=== PATIENT | male | born 1985 | race Caucasian/White ===

== ENCOUNTER 2025-01-26 23:19 | Emergency (ER) | payer SELFPAY ==
[2025-01-26 23:19] VITALS: BP 116/63; PULSE 110; RESP 16; TEMP 36.4; O2SAT 100
[2025-01-26 23:31] VITALS: BP 143/82; PULSE 103; RESP 16; TEMP 36.4; O2SAT 99; BMI 27.0
[2025-01-26] MEDS: 0.9% Normal Saline (1000mL) 1,000 ML 999 ML IV (23:47)
[2025-01-26 23:56] LABS: Hematocrit 36.6 % (40-54); Hemoglobin 11.5 g/dL (13.0-16.5); Immature Granulocytes Count 0.100 X10^3/uL (0.0-0.0); Mean Corp Hgb Conc 31.4 g/dL (32-36); Mean Corpuscular Volume 91.5 fL (80-94); Mean Platelet Vol. 8.6 fl (6.2-12.0); NRBC Flagged by Analyzer 0 % (0-5); Platelet Count 306 K/mm3 (150-450); RBC Distribution Width CV 12.7 % (11.6-14.6); RBC Distribution Width SD 42.8 fl (35.1-43.9); Red Blood Count 4.00 M/mm3 (4.6-6.2); White Blood Count 11.8 K/mm3 (4.4-11.0)
[2025-01-27 00:13] VITALS: BP 140/82; PULSE 88; RESP 18; TEMP 36.6; O2SAT 100
[2025-01-27 00:37] LABS: AST(SGOT) 80 U/L (<=37); Alanine Aminotransfer ALT/SGPT 181 U/L (<=46); Albumin, Serum 3.3 g/dL (3.5-5.0); Alkaline Phosphatase 107 U/L (40-129); Anion Gap 13 (5-15); BUN 18 mg/dL (4-19); BUN/Creat Ratio 19.6 RATIO (10-20); Bilirubin, Direct 0.28 mg/dL (0.00-0.30); Calcium,Total 8.8 mg/dL (7.6-11.0); Carbon Dioxide 26.3 mmol/L (21.0-32.0); Chloride 97 mmol/L (98-108); Estimated Creatinine Clearance 113.64 ml/min (50-250); Globulin 3.7 g/dL (2.2-4.2); Glucose 111 mg/dL (70-99); Lipase 23 U/L (13-75); Magnesium 2.4 mg/dL (1.5-2.2); Potassium 3.8 mmol/L (3.3-5.1); Procalcitonin 0.19 ng/mL (<=0.10)
--- NOTE | 2025-01-27 00:49 | CT_ITS ---
PROCEDURE: ABDOMEN/PELVIS W IV CONT ONLY 01/27/2025 REASON FOR EXAM: ABD PAIN TECHNIQUE: Procedure Code: [id number] Modality: CT Procedure: ABDOMEN/PELVIS W IV CONT ONLY Coronal and Sagittal reconstruction series were provided. CONTRAST: isovue 370 VOLUME: 100 mL One or more dose reduction techniques were used (e.g., Automated exposure control, adjustment of the mA and/or kV according to patient size, use of iterative reconstruction technique. RADIATION DOSE SUMMARY: CTDI Vol 13.71 mGy DLP :713.64 mGycm COMPARISON: none FINDINGS: Average sized liver showing homogenous parenchymal attenuation. No dilated intra or extra-hepatic biliary tracts. Gall bladder showing no radiodense calculi. Normal appearance of the pancreas with clear surrounding fat planes. The adrenal glands, aorta and IVC are unremarkable. Non homogenous splenic attenuation showing patchy hypodensities, possibly perfusional. Advise sonography correlation. Minimal left hydroureter with mild mid and lower ureteric wall thickening and enhancement, possibly uretertis. Advise clinical and laboratory correlation. Both kidneys are of average size and showing smooth outline with preserved parenchymal thickness. No renal calculi. No hydronephrosis. Distension of the urinary bladder showing no obvious masses. No obvious masses related to the pelvic viscera. The appendix appears unremarkable. No right iliac inflammatory changes. Colonic fecal loading. Colonic diverticulosis. No diverticulitis. The small bowel loops are unremarkable. The stomach is unremarkable. No ascites or free air. No obvious pathologically enlarged lymph nodes. Scanned osseous structures show no osseous destruction. Scanned lung bases show basal atelectatic bands. CT/Abdomen/Pelvis W IV Cont ONLY IMPRESSION: Non homogenous splenic attenuation showing patchy hypodensities, possibly perfu sional. Advise sonography correlation. Minimal left hydroureter with mild mid and lower ureteric wall thickening and e nhancement, possibly uretertis. Advise clinical and laboratory correlation. Reading Location: [place] [id number]
[2025-01-27 01:00] VITALS: BP 140/73; PULSE 95; RESP 18; TEMP 36.8; O2SAT 100
--- NOTE | 2025-01-27 02:02 | EDS_ITS ---
HPI History of Present Illness Chief Complaint: Abd Pain Informant: patient and spouse/S.O. Narrative Narrative: Patient is a 39-year-old male who states he has no significant past medical history other than recently being treated for potential Lyme disease. He states that he saw his family doctor and had a Lyme test obtained and it was ultimately negative. However because his family doctor had concern that it was a false negative he did start him on doxycycline. The patient has a known medication intolerance to this that he reports causes abdominal pain as well as cramping and bloating. He states that he took the medication as directed but after being on it for 3 to 4 days had significant side effects and he chose to stop the medication on Saturday. He reports that he has not had the bed now for 2 days but despite not taking it he has persistent abdominal discomfort. He reports nausea associated with this but denies any vomiting or diarrhea. He denies any dysuria fevers or chills or known sick contact. However because of the persistent sympt oms he presents for evaluation [facility] Medical History no medical history Home Medications ?Medication ?Instructions ?Recorded ?Last Taken ?Type ondansetron 4 mg disintegrating 4 mg PO TID PRN nausea and 01/27/25 Unknown Rx tablet vomiting #21 tabs oxycodone-acetaminophen 5 mg-325 1 tab PO Q6H PRN pain 3 days #12 01/27/25 Unknown Rx mg tablet (Percocet) tabs Allergy/AdvReac Type Severity Reaction Status Date / Time amoxicillin Allergy Abd Verified 01/26/25 23:22 cramps/diarrhea clavulanic acid (From Allergy Abd Verified 01/26/25 23:22 Augmentin) cramps/diarrhea doxycycline AdvReac Abd Verified 01/26/25 23:22 cramps/diarrhea Family History no significant family his Surgical History no surgical history Social History Smoking Status: Never smoker ROS ROS ED Constitutional Constitutional ED: Denies chills or fever(s) ENT ENT ED: Denies rhinorrhea or sore throat Cardiovascular Cardiovascular: Denies chest pain Respiratory/Chest Respiratory/Chest: Denies cough or dyspnea Gastrointestinal Gastrointestinal: Reports abdominal pain and nausea; Denies diarrhea or vomiting Genitourinary Genitourinary ED: Denies dysuria Musculoskeletal Musculoskeletal: Denies back pain or myalgias Integumentary Denies rash Neurologic Neurologic: Denies headache(s) Hematologic/Lymphatic Hematologic/Lymphatic: Denies easy bleeding or easy bruising EXAM Physical Exam Const Vital Signs: 01/26/25 23:19 01/26/25 23:31 01/27/25 00:13 Temperature 97.6 F L 97.6 F L 97.8 F Temperature Source Oral Oral Oral Pulse Rate 110 H 103 H 88 Respiratory Rate 16 16 18 Blood Pressure 116/63 143/82 H 140/82 H Blood Pressure Mean 80 102 101 Pulse Ox 100 99 100 Oxygen Delivery Method Room Air Room Air Room Air 01/27/25 01:00 01/27/25 02:03 01/27/25 02:03 Temperature 98.3 F 98.3 F Temperature Source Oral Pulse Rate 95 85 85 Respiratory Rate 18 18 18 Blood Pressure 140/73 H 135/83 H 135/83 H Blood Pressure Mean 95 100 100 Pulse Ox 100 100 100 Oxygen Delivery Method Room Air Room Air Positive well nourished and well developed General Appearance ED: well developed; Negative for pallor HEENT HEENT Narrative: Normocephalic atraumatic No tongue or lip swelling no oral lesions no airway edema or compromise No secondary findings in the posterior pharynx to suggest infection Mucous membranes are mildly dry and tacky Eyes PERRL and EOMs intact bilaterally General Eye ED: Negative for scleral icterus Neck supple Neck Narrative: No nuchal rigidity or meningeal signs Resp normal respiratory effort and clear to auscultation bilaterally Cardio regular rate and regular rhythm Rate: other Other Details: Regular rate and rhythm without murmurs rubs or gallops Radial and carotid pulses are equal and symmetric GI non-distended and no masses GI Narrative: Abdomen is soft and nondistended with hyperactive bowel sounds Patient has mild diffuse pain with palpation without voluntary guarding or rigidity No pulsatile mass or fluid wave No peritoneal signs Auscultation: hyperactive bowel sounds Palpation: soft Extremity normal to inspection Neuro oriented x3, CN's II-XII intact bilaterally and no sensory deficits noted Sensorium / Orientation: alert Motor Exam: strength 5/5 throughout Psych mental status grossly normal Skin no rashes or lesions noted and no wounds General Skin Exam: Negative for jaundice or pallor MDM MDM MDM Narrative Medical decision making narrative: Patient arrived to the ER with stable vitals. He reported known medication intolerance to doxycycline and has been on this for 3 to 4 days. He states however he has been off the medication for approximate 2 days now without symptom improvement. In order to assess for acute kidney injury versus electrolyte abnormality versus pancreatitis I did elect to perform basic laboratory studies. The patient reports that he had an x-ray done by the family doctor just the other day which was reportedly normal. He did have a copy of his blood work that was obtained at the same time and it was reviewed. It showed leukocytosis with a white count of 12.4 a neutrophil count elevated at 9.6 and other markers of inflammation with an ESR of 79. Blood work today is similar to the one obtained by his family doctor with mild elevation to the white blood cell count and absolute neutrophil count which correlates most likely with inflammation. Lipase is normal going against pancreatitis. Liver enzymes in the AST and ALT were slightly elevated. In order to rule out a potential gallbladder pathology such as acute cholecystitis acute appendicitis or colitis/diverticulitis I did elect to add a CT scan with IV contrast of the abdomen and pelvis. This revealed potential left ureteritis however the patient's pain is diffuse and he does not have associated back pain or urinary issues and therefore this does not clinically correlate. The radiologist also documented potential phase augmentation of the spleen. Once again his pain is not localized there is no report or signs of trauma and this does not clinically correlate so there is no need for an emergent sonographic evaluation. After receiving medication in the ER the patient reports his pain is now a 2 or 3. On reevaluation his abdomen remains soft and nonsurgical. Therefore as his labs are very similar to the previous day his CT scan reveals no sign of acute infection and his pain is improved I do not feel the need for further intervention and he is otherwise safe for discharge. History & Record Review Discussion w/independent historian: Patient and Significant other Additional record(s) reviewed:: Prior labs Lab Data Attestation: I reviewed the patient's lab results. Labs: Laboratory Results - last 24 hr 01/26/25 23:36 WBC 11.8 H RBC 4.00 L Hgb 11.5 L Hct 36.6 L MCV 91.5 MCH 28.8 MCHC 31.4 L RDW Std Deviation 42.8 RDW Coeff of Iveth 12.7 Plt Count 306 MPV 8.6 Immature Gran % (Auto) 0.800 Neut % (Auto) 79.8 H Lymph % (Auto) 6.6 L [place] % (Auto) 6.0 Eos % (Auto) 6.4 H Baso % (Auto) 0.4 Absolute Neuts (auto) 9.4 H Absolute Lymphs (auto) 0.78 L Nucleated RBC % 0 Sodium 136 Potassium 3.8 Chloride 97 L Carbon Dioxide 26.3 Anion Gap 13 BUN 18 Creatinine 0.91 Estim Creat Clear Calc 113.64 Est GFR (MDRD) Non-Af 111 BUN/Creatinine Ratio 19.6 Glucose 111 H Calcium 8.8 Magnesium 2.4 H Total Bilirubin 0.62 Direct Bilirubin 0.28 AST 80 H ALT 181 H Alkaline Phosphatase 107 Total Protein 7.0 Albumin 3.3 L Globulin 3.7 Lipase 23 Procalcitonin 0.19 H Radiography Diagnostic Testing: Clinical Impression(s) from Imaging Studies Abdomen/Pelvis CT 01/27/25 00:49 IMPRESSION: Non homogenous splenic attenuation showing patchy hypodensities, possibly perfusional. Advise sonography correlation. Minimal left hydroureter with mild mid and lower ureteric wall thickening and enhancement, possibly uretertis. Advise clinical and laboratory correlation. Reading Location: [place] [id number] Discharge Plan Triage Chief Complaint: Abd Pain ED Provider: Paul Lieberman Dx/Rx/DC Orders Clinical Impression: Nonspecific abdominal pain Instructions: Abdominal Pain Prescriptions: New ondansetron 4 mg tablet,disintegrating 4 mg PO TID PRN (Reason: nausea and vomiting) Qty: 21 0RF oxycodone-acetaminophen [Percocet] 5-325 mg tablet 1 tab PO Q6H PRN (Reason: pain) 3 Days Qty: 12 0RF Stand Alone Forms: ED Work / School Excuse Primary Care Provider: Haja Santiago Referrals: Haja Santiago MD [Primary Care Provider, Medical] Activity Restrictions/Additional Instructions: Your CT scan today revealed no sign of intestinal infection such as colitis/diverticulitis or appendicitis. Your labs were very similar to the ones obtained by your family doctor. Your symptoms should improve over the next 2 to 3 days as the doxycycline metabolizes out of your system. If your symptoms are persisting/worsening or you have any further concerns then return to the ER for repeat evaluation Print Language: Kos[place] Disposition Disposition: Home, Self Care Discharge Date/Time: 01/27/25 02:11
[2025-01-27 02:03] VITALS: BP 135/83; PULSE 85; RESP 18; TEMP 36.8; O2SAT 100
== END 2025-01-27 02:11 | disposition home or self-care (01) ==
PROVIDERS: Emergency Provider Emergency Medicine; PCP Family Medicine; Visit Provider Emergency Medicine
DX: R10.9 Unspecified abdominal pain (principal)
CPT/HCPCS: 74177; 80048; 80076; 83690; 83735; 84145; 85025; 96361; 96374; 96375; 99284; Q9967; A4216; J2405

== ENCOUNTER 2025-01-29 17:13 | Inpatient (IN) | payer SELFPAY ==
[2025-01-29] VITALS (8 sets, daily range): BP systolic 116–140; BP diastolic 68–89; PULSE 78–123; RESP 12–22; TEMP 37.2–37.9; O2SAT 96–100; BMI 27.9
--- NOTE | 2025-01-29 17:40 | EDS_ITS ---
HPI History of Present Illness Chief Complaint: Abd Pain Informant: patient, spouse/S.O. and PCP Narrative Narrative: Patient is a 39-year-old male with no significant PMHx presenting with bilateral leg pain, abdominal pain, and chest pain. - Symptoms began approximately one month ago with bilateral calf pain, which progressed to involve the posterior and anterior thighs and buttocks, resulting in difficulty ambulating. - Evaluated by PCP initially, underwent multiple tests including a Lyme disease test, which was negative; started on doxycycline, which caused gastrointestinal discomfort. According to the patient and his , near to the beginning of the symptoms he had been in the fish but experienced no known tick bite and never developed any rash or erythema migrans. - Reports improvement in leg pain, but now experiencing left-sided abdominal and chest pain, which began 1 week ago and has progressively worsened. - Associated symptoms include intermittent fevers, night sweats, bilateral testicular pain, pubic bone pain, and lower back pain. Reports numbness and tingling in feet, with associated weakness in both legs. Still able to walk but with difficulty. At the beginning of this about a month ago he had pain in his mandible with eating, no sore throat, some sinus congestion, but all that is gone now. - Reports some myalgias in biceps and forearms, but no upper ext weakness/numbness or neck pain. - Reports a weight loss of approximately 15 lbs. - Evaluated here in the ED on Saturday, underwent a CT scan of the abd, and was prescribed oxycodone for pain management. Took last dose of oxycodone at 0600 today; reports worsening pain this afternoon, prompting a visit to the PCP, who referred him to the ED upon reevaluating in the office and recording a fever of 101.3 and persistent symptoms of unk cause. PFSH PFS Medical History no medical history no medical history Home Medications ?Medication ?Instructions ?Recorded ?Last Taken ?Type ondansetron 4 mg disintegrating 4 mg PO TID PRN nausea and 01/27/25 Unknown Rx tablet vomiting #21 tabs oxycodone-acetaminophen 5 mg-325 1 tab PO Q6H PRN pain 3 days #12 01/27/25 Unknown Rx mg tablet (Percocet) tabs Allergy/AdvReac Type Severity Reaction Status Date / Time amoxicillin Allergy Abd Verified 01/29/25 17:15 cramps/diarrhea clavulanic acid (From Allergy Abd Verified 01/29/25 17:15 Augmentin) cramps/diarrhea doxycycline AdvReac Abd Verified 01/29/25 17:15 cramps/diarrhea Social History Smoking Status: Never smoker ROS ROS ED Constitutional Constitutional ED: Reports chills, fatigue and fever(s) Eyes Eyes: Denies change in vision or diplopia ENT ENT ED: Denies rhinorrhea or sore throat Cardiovascular Cardiovascular: Denies chest pain or palpitations Respiratory/Chest Respiratory/Chest: Denies cough or dyspnea Gastrointestinal Gastrointestinal: Reports abdominal pain; Denies diarrhea, nausea or vomiting Genitourinary Genitourinary ED: Reports scrotal pain; Denies dysuria or hematuria Musculoskeletal Musculoskeletal: Reports back pain and myalgias; Denies neck pain Integumentary Denies abscess or rash Neurologic Neurologic: Reports paresthesias RLE and LLE and weakness; Denies headache(s) Psychiatric Psychiatric: Denies suicidal thoughts EXAM Physical Exam Const Vital Signs: 01/29/25 17:14 01/29/25 17:25 01/29/25 17:57 Temperature 99.6 F H 99.7 F H Temperature Source Oral Oral Pulse Rate 123 H 119 H Respiratory Rate 22 H 13 Blood Pressure 140/84 H 137/89 H Blood Pressure Mean 102 105 Pulse Ox 99 99 Oxygen Delivery Method Room Air Room Air Room Air 01/29/25 18:14 01/29/25 20:21 01/29/25 21:00 Temperature 100.2 F H 100.2 F H Temperature Source Oral Oral Pulse Rate 78 108 H 109 H Respiratory Rate 16 22 H 14 Blood Pressure 132/78 H 120/71 116/83 H Blood Pressure Mean 96 87 94 Pulse Ox 98 96 97 Oxygen Delivery Method Room Air Room Air Room Air 01/29/25 21:49 01/29/25 22:10 01/29/25 23:10 Temperature 99.1 F 99.1 F 99 F Temperature Source Oral Oral Oral Pulse Rate 109 H 100 101 H Respiratory Rate 21 H 12 18 Blood Pressure 136/72 H 124/77 H 118/68 Blood Pressure Mean 93 92 84 Pulse Ox 100 100 100 Oxygen Delivery Method Room Air Room Air Room Air 01/30/25 00:05 01/30/25 01:00 Temperature 99.1 F Temperature Source Oral Pulse Rate 96 91 Respiratory Rate 12 Blood Pressure 124/88 H 119/76 Blood Pressure Mean 100 90 Pulse Ox 98 99 Oxygen Delivery Method Room Air Positive well nourished and well developed General Appearance ED: well developed and NAD HEENT Reports moist mucous membranes normocephalic and atraumatic Eyes PERRL and EOMs intact bilaterally Neck full ROM and supple Resp normal respiratory effort and clear to auscultation bilaterally Cardio regular rate, regular rhythm and no murmurs Rate: tachycardic GI non-distended GI Narrative: Mild diffuse tenderness without guarding or rebound Auscultation: normoactive bowel sounds Palpation: soft Narrative: exam is normal on inspection. Penis is normal on inspection no palpable tender lymphadenopathy in the groin. Both testicles are normal-appearing scrotum does not appear to be edematous or erythematous, but both testicles are tender especially the right. More so posteriorly in the epididymis area. No blue dot sign. Perineum is normal on palpation and inspection, there is no subcutaneous emphysema, and sensation is normal in the perineum and perianal areas. Back/Spine Back/Spine Narrative: Patient indicates pain is lower thoracic upper lumbar area there is no tenderness or abnormal inspection. No step-off. General Back: CVA tenderness right (Mild subjective normal inspection) and other FROM Extremity normal to inspection General Extremety ED: Negative for edema, pulses abnormal or tenderness General Extremity: Negative for edema or pulses abnormal Neuro oriented x3, CN's II-XII intact bilaterally and no sensory deficits noted Neuro Narrative: Weakness all muscle groups symmetrically 4+/5 throughout both lower extremities. Decreased sensation on dorsal and plantar aspects of both feet but normal sensation proximal to the ankles. Normal motor and sensation both upper extremities. Normal lower extremity reflexes with no clonus and toes downgoing bilaterally. Normal speech no aphasia or dysarthria. Sensorium / Orientation: awake and alert Psych mental status grossly normal Skin no rashes or lesions noted and no wounds MDM MDM MDM Narrative Medical decision making narrative: I reviewed the patient's prior ED visit and labs. He had some mildly elevated liver enzymes he had a CT that showed that he had some mild left hydroureter and inflammatory changes as well as some nonhomogenous splenic attenuation with patchy hypodensities possibly perfusional. It is unclear how all of this is related to his fevers, but I do not think that these findings explain all of his symptoms and I am more concerned about the fact that he is having persistent fevers objective weakness in his legs and severe pain in his back. Epididymitis clinically is suspected but that does not explain all of this either so I think he needs an emergent MRI of his lumbar and thoracic spine with contrast given the location of his pain, to evaluate for epidural abscess/infection. Blood cultures have been obtained, along with repeated CMP and CBC, and a urinalysis was performed, which was not done previously. I reviewed the prior CT, which showed some inflammation around the left ureter but was fairly nonspecific and showed no other acute findings. I do not think the CT needs to be repeated since it was performed only a few days ago. I also obtained a chest X-ray (two views), which I interpreted as negative, and I ordered a testicular ultrasound, as well as emergent thoracic and lumbar MRIs with contrast. The MRIs are negative for an epidural abscess or any other acute abnormality that would explain these symptoms. The testicular ultrasound is indeterminate; it shows findings that may be consistent with left epididymitis, although the patient is more tender on the right. The ultrasound findings show multiple ill- defined hypoechoic regions within both testicles with preserved vascularity, which may be inflammatory or infectious. Bilateral varicocele is noted, but it is unclear how this is related. Mumps is a consideration, although he does not currently have parotid involvement. However, he reports he had jaw pain with eating early in the course of this illness, though without swelling. Because the sensitivity for Lyme is relatively low early on, I think it is worth repeating that test. I also sent mumps titers, which are unlikely to be performed tonight, especially since this is a Saturday night at a [facility] hospital. The liver enzymes are now slightly elevated (they were normal before): AST is 102, ALT 176, and alkaline phosphatase 130. Total bilirubin is normal. Lactic acid is normal at 1.1, and CPK is normal at 79. Urine shows blood but no sign of infection, and it is unclear how all of this ties together. On reexamination, after administering Tylenol for his fever, he is doing well. His tachycardia has resolved, his blood pressure is normal at 124/77, and he is on room air at 100%. He appears well, is not encephalopathic, and does not appea r to have meningitis. Clinically he is stable, and it is unclear how his multisystem symptoms and findings fit together I spoke with my hospitalist here, who states we do not have urology for the next week nor tonight and given his CT findings and ultrasound findings he would recommend urologic consult for that reason he may benefit from transfer to a tertiary care center that would also have other subspecialties such as rheumatology that we also do not have as an inpatient here. I did send CRP and ESR which are both elevated, Monospot is negative. Vasculitis is in the differential, he has spleen abnormalities and anemia, it is unclear if this could be an immune system issue or hematologic problem. He is not septic, so I am holding off on any antibiotics. I discussed with clinic transfer line, they suggested speaking with internal medicine at [facility] since that is the only hospital and they are network that has rheumatology in case he may need that specialist/resource. I spoke with Dr. Niru dailey/ medicine, who accepts the pt to [facility]. History & Record Review Additional record(s) reviewed:: Prior outpatient record Lab Data Attestation: I reviewed the patient's lab results. Labs: Laboratory Results - last 24 hr 01/29/25 01/29/25 01/30/25 17:30 21:47 00:08 WBC 11.6 H RBC 3.76 L Hgb 11.2 L Hct 34.2 L MCV 91.0 MCH 29.8 MCHC 32.7 RDW Std Deviation 43.6 RDW Coeff of Iveth 13.1 Plt Count 325 MPV 8.6 Immature Gran % (Auto) 0.600 Neut % (Auto) 84.7 H Lymph % (Auto) 5.6 L Villalba % (Auto) 5.4 Eos % (Auto) 3.4 Baso % (Auto) 0.3 Absolute Neuts (auto) 9.8 H Absolute Lymphs (auto) 0.65 L Nucleated RBC % 0 ESR 60 H PT 14.6 INR 1.1 APTT 37.0 H Sodium 134 Potassium 3.9 Chloride 95 L Carbon Dioxide 28.1 Anion Gap 11 BUN 12 Creatinine 0.85 Estim Creat Clear Calc 131.94 Est GFR (MDRD) Non-Af 114 BUN/Creatinine Ratio 14.3 Glucose 104 H Lactic Acid 1.1 Calcium 8.8 Total Bilirubin 0.58 AST 102 H ALT 176 H Alkaline Phosphatase 130 H Total Creatine Kinase 79 C-React Prot Ext Range 234.00 H Total Protein 7.1 Albumin 3.2 L Globulin 3.9 Albumin/Globulin Ratio 0.8 L Urine Color Yellow Urine Clarity Clear Urine pH 7.0 Ur Specific [place] 1.010 Urine Protein 100 H Urine Glucose (UA) Normal Urine Ketones 50 H Urine Occult Blood 250 H Urine Nitrite Negative Urine Bilirubin Negative Urine Urobilinogen Normal Ur Leukocyte Esterase 25 H Urine RBC 50-100 SEEN Urine WBC 0-5 SEEN Ur Squamous Epith Cells 0 SEEN Urine Bacteria 1+ Urine Mucus 0 SEEN Monoscreen Negative Radiography Diagnostic Testing: Clinical Impression(s) from Imaging Studies Lumbar Spine MRI 01/29/25 17:51 IMPRESSION: Unremarkable exam. No significant spinal canal or neural foraminal narrowing. No signal abnormality or pathologic enhancement involving the spinal cord or cauda equina. Reading Location: [facility] Testicular Ultrasound 01/29/25 17:51 IMPRESSION: Multiple ill defined hypoechoic regions within both testicles with preserved intratesticular vascularity. Findings are indeterminate but may be inflammatory or infectious in the setting of fever and bilateral testicular pain. Heterogeneous left epididymis which may reflect epididymitis. Small right epididymal head cyst. Bilateral varicoceles. Reading Location: [facility] Thoracic Spine MRI 01/29/25 17:51 IMPRESSION: Unremarkable exam. No significant spinal canal or neural foraminal narrowing. No signal abnormality or pathologic enhancement involving the spinal cord or cauda equina. Reading Location: [facility] Chest X-Ray 01/29/25 18:05 IMPRESSION: No acute pulmonary disease. Reading Location: [facility] Rhythm Strip Rhythm Strip: Sinus Tach Rate: 120 Ectopy: None Management Discussion w/another healthcare provider: Hospitalist and Stock Letterer Discharge Plan Triage Chief Complaint: Abd Pain Other Complaint: Male Pain/Injury ED Provider: Alfred Garcia Dx/Rx/DC Orders Clinical Impression: Fever, Weakness of both lower extremities, Paresthesia of both legs, Elevated liver enzymes, Diffuse abdominal pain, Pain in both testicles, Microscopic hematuria, Ureteritis, Low back pain, Hydroureter on left, Anemia, Proteinuria Prescriptions: No Action ondansetron 4 mg tablet,disintegrating 4 mg PO TID PRN (Reason: nausea and vomiting) Qty: 21 0RF oxycodone-acetaminophen [Percocet] 5-325 mg tablet 1 tab PO Q6H PRN (Reason: pain) 3 Days Qty: 12 0RF Primary Care Provider: Michelle Centeno Referrals: Haja Santiago MD [Non-Staff, Medical] Print Language: Wolof Disposition Disposition: Acute Care Hospital Discharge Location: [facility]
--- OUTSIDE RECORDS SUMMARY | 2025-01-29 17:45 | XMS RPT_ITS | CCD ---
Author Organization [facility] Care Team Providers Care Clinic Cma Name Role Phone [facility] Admitting Unava ilable [facility] Attending Unava ilable [facility] Primary Care Unava ilable [facility] Admitting Unava ilable [facility] Attending Unava ilable [facility], [facility] Primary Care Unava ilable MIKE JONESRY T Consulting Unavailable PROVIDER, UNKNOWN Consulting Unavailable PROVIDER, UNKNOWN Consulting Unavailable PROVIDER, UNKNOWN Consulting Unavailable WAQAR SANTANA Admitting Unavailable WAQAR SANTANA Attending Unavailable WAQAR SANTANA Primary Care Unavailable TRINITY JONES Consulting Unavailable PROVIDER, UNKNOWN Consulting Unavailable PROVIDER, UNKNOWN Consulting Unavailable PROVIDER, UNKNOWN Consulting Unavailable [facility] Admitting Unava ilable [facility] Attending Unava ilable [facility], [facility] MED Primary Care Unava ilable JONESSHAHNAZTRINITY T Consulting Unavailable PROVIDER, UNKNOWN Consulting Unavailable PROVIDER, UNKNOWN Consulting Unavailable PROVIDER, UNKNOWN Consulting Unavailable Results Test Name Value Interpretation Reference Range Facil ity CULTURE, AEROBIC BACTERIAon 07-01-2021 CULTURE, AEROBIC BACTERIA SEE NOTE Normal [facility] Comment on above: Result Comment: CULTURE, AEROBIC BACTERIA Micro Number: [id number] Test Status: Final Specimen Source: Right side neck Specimen Quality: Adequate Result: No Growth Performed By: #### 4 [id number] #### [facility] [address], [address] [place] [address] [place] Teacher: Ron Mendoza MD TISSUE PATHOLOGYon 2 A DIAGNOSIS Normal [facility] Comment on above: Result Comment: Comp lete cross sections of vas deferens with no significant diagnostic abnormality. Performed By: #### 3 [id number] #### [facility], [address] [place] [address] [place] Teacher: Nubia Randhawa GROSS DESCRIPTION Normal [facility] Comment on above: Result Comment: Rece ived in formalin is a specimen labeled with patient identifiers that consists of two cylindrical segments of rice-pink rubbery soft tissue, measuring 1.4 cm and 2.0 cm in length and 0.2 cm in diameter each. Submitted entirely and individually in two cassettes. Both specimen are sectioned during paraffin embedding. CINDY Performed By: #### 3 [id number] #### [facility] [address], [address] [place] [address] [place] Teacher: Nubia Randhawa SOURCE Normal [facility] Comment on above: Result Comment: Righ t and left vas deferens, bilateral vasectomy: Performed By: #### 3 542 #### [address], [facility] [address] [place] [address] [place] Teacher: Nubia Solis CLINICAL INFORMATION Normal [facility] Comment on above: Result Comment: Vase ctomy (Z30.2) Performed By: #### 3 542 #### [address], [facility] [address] [place] [address] [place] Teacher: Nubia Solis Pathologist Cyto stain Nom (Cvx/Vag) [ID] Normal [facility] Comment on above: Result Comment: Micki George M.D. Board certified in Anatomic Pathology and Clinical Pathology (electronic signature) [phone] Performed By: #### 3 542 #### [address], [address] [place] [address] [place] Teacher: Nubia Solis Encounters Encounter Date Encounter Type Care Provider Facility Start: 04-26-2020 End: 04-26-2020 Patient encounter procedure [facility] Start: 02-24-2020 End: 02-24-2020 Patient encounter procedure WAQAR SANTANA [facility] Start: 11-06-2019 End: 11-06-2019 Patient encounter procedure [facility] Start: 08-10-2019 End: 08-10-2019 Patient encounter procedure [facility] Summary Purpose Family History No Family History Records FoundNo Family History Records Found Advance Directives No Advanced Directives Records FoundNo Advanced Directives Records Found Additional Source Comments (unrecognized sect ion and content) No Status Records FoundNo Status Records Found INFORMATION SOURCE (unrecogn ized section and content) DATE CREATED AUTHOR 05/16/2020 [facility] DATE CREATED AUTHOR AUTHOR'S ORGANIZ ATION 07/02/2021 [facility] FOR RECORDS PERTAINING TO PATIENTS WHO ARE OR HAVE BEEN ENROLLED IN A CHEMICAL DEPENDENCY/SUBSTANCEABUSE PROGRAM, SOME INFORMATION MAY BE OMITTED. This clinical summary was aggregated from multiple sources. Caution should be exercised in using it in the provision of clinical care. This summary normalizes information from multiple sources, and as a consequence, information in this document may materially change the coding, format and clinical context of patient data. In addition, data may be omitted in some cases. CLINICAL DECISIONS SHOULD BE BASED ON THE PRIMARY CLINICAL RECORDS. [employer] [facility]. provides no warranty or guarantee of the accuracy or completeness of information in this document.
--- NOTE | 2025-01-29 17:46 | EKG12_ITS ---
Test Reason : Blood Pressure : */* mmHG Vent. Rate : 115 BPM Atrial Rate : 115 BPM P-R Int : 120 ms QRS Dur : 100 ms QT Int : 312 ms P-R-T Axes : 27 25 6 degrees QTcB Int : 431 ms Sinus tachycardia Moderate voltage criteria for LVH, may be normal variant ( R in aVL , Sokolow- Alcaraz ) Borderline ECG Reconfirmed by Wesley James ([id number]), film or videotape editor VICTORINO COFFMAN ([id number]) on 02/01/2025 10:23:09 AM Also confirmed by Wesley James ([id number]), film or videotape editor VICTORINO COFFMAN ([id number]) on 02/02/2025 8:31:35 AM Referred By: BB Confirmed By: Wesley James
--- NOTE | 2025-01-29 17:51 | US_ITS ---
PROCEDURE: TESTICULAR WITH ARTERIAL FLOW 01/29/2025 REASON FOR EXAM: FEVER, BILAT TESTIC PAIN TECHNIQUE: Procedure Code: USTES Modality: US Procedure: TESTICULAR WITH ARTERIAL FLOW FINDINGS: Right testicle measures 4.9 x 3.5 x 0.2 cm. Multiple ill-defined hypoechoic regions with the largest measuring 1.5 x 1.5 x 1.0 cm. Vascularity within normal limits. Right epididymis measures 0.9 x 1.3 x 1.0 cm. Homogeneous epididymis. 0.4 x 0.5 x 0.3 cm epididymal head cyst. Left testicle measures 4.7 x 2.7 x 2.0 cm. Multiple ill-defined hypoechoic areas with the largest measuring 0.9 x 1.6 x 0.9 cm. Vascularity within normal limits. Left epididymis measures 1.2 x 2.1 x 1.2 cm. Heterogeneous epididymis. Dilation of the bilateral pampiniform plexus veins compatible with varicoceles. US/Testicular with Arterial Flow IMPRESSION: Multiple ill defined hypoechoic regions within both testicles with preserved in tratesticular vascularity. Findings are indeterminate but may be inflammatory or infectious in the setting of fever and bilateral testicular pain. Heterogeneous left epididymis which may reflect epididymitis. Small right epididymal head cyst. Bilateral varicoceles. Reading Location: [facility]
--- NOTE | 2025-01-29 17:51 | MRI_ITS ---
PROCEDURE: MRI SPINE THORACIC; SPINE LUMBAR W/WO CONTRAST 01/29/2025 REASON FOR EXAM: FEVER, BACK PAIN, BLE WEAKNESS/NUMBNESS TECHNIQUE: Multiplanar and multisequential MRI of the thoracic and lumbar spines was performed without and with intravenous gadolinium-based contrast. CONTRAST: Clariscan VOLUME: 17mL COMPARISON: None. FINDINGS: Conventional spinal numbering. Thoracolumbar vertebrae are preserved in height, with anatomic alignment and normal marrow signal. No substantial spondylotic changes are appreciated. No significant disc bulge, spinal canal or neural foraminal narrowing. No mass lesion or pathologic enhancement. The visualized spinal cord appears normal in signal and morphology. The conus terminates normally at L1. Normal appearance of the cauda equina without abnormal thickening or enhancement. No significant abnormality in the visualized paravertebral soft tissues. MRI/Spine Thoracic W/WO Contrast IMPRESSION: Unremarkable exam. No significant spinal canal or neural foraminal narrowing. No signal abnormality or pathologic enhancement involving the spinal cord or ca uda equina. Reading Location: [id number]
--- NOTE | 2025-01-29 17:51 | MRI_ITS ---
PROCEDURE: MRI SPINE THORACIC; SPINE LUMBAR W/WO CONTRAST 01/29/2025 REASON FOR EXAM: FEVER, BACK PAIN, BLE WEAKNESS/NUMBNESS TECHNIQUE: Multiplanar and multisequential MRI of the thoracic and lumbar spines was performed without and with intravenous gadolinium-based contrast. CONTRAST: Clariscan VOLUME: 17mL COMPARISON: None. FINDINGS: Conventional spinal numbering. Thoracolumbar vertebrae are preserved in height, with anatomic alignment and normal marrow signal. No substantial spondylotic changes are appreciated. No significant disc bulge, spinal canal or neural foraminal narrowing. No mass lesion or pathologic enhancement. The visualized spinal cord appears normal in signal and morphology. The conus terminates normally at L1. Normal appearance of the cauda equina without abnormal thickening or enhancement. No significant abnormality in the visualized paravertebral soft tissues. MRI/Spine Lumbar W/WO Contrast IMPRESSION: Unremarkable exam. No significant spinal canal or neural foraminal narrowing. No signal abnormality or pathologic enhancement involving the spinal cord or ca uda equina. Reading Location: [id number]
[2025-01-29] MEDS: 0.9% Normal Saline (1000mL) 1,000 ML 999 ML IV (18:03)
--- NOTE | 2025-01-29 18:05 | RAD_ITS ---
PROCEDURE: CHEST 1 VIEW (PORTABLE) 01/29/2025 REASON FOR EXAM: FEVER TECHNIQUE: Frontal view of the chest. COMPARISON: None. FINDINGS: Lungs/Pleura: Clear. No appreciable focal consolidation or pleural effusion. Heart/Mediastinum: Within normal limits. Bones/Soft tissues: Unremarkable. RAD/Chest 1 View (Portable) IMPRESSION: No acute pulmonary disease. Reading Location: [id number]
[2025-01-29 18:56] LABS: AST(SGOT) 102 U/L (<=37); Alanine Aminotransfer ALT/SGPT 176 U/L (<=46); Albumin, Serum 3.2 g/dL (3.5-5.0); Alkaline Phosphatase 130 U/L (40-129); Anion Gap 11 (5-15); BUN 12 mg/dL (4-19); BUN/Creat Ratio 14.3 RATIO (10-20); CPK Total, Creatine Kinase 79 U/L (24-195); Calcium,Total 8.8 mg/dL (7.6-11.0); Carbon Dioxide 28.1 mmol/L (21.0-32.0); Chloride 95 mmol/L (98-108); Estimated Creatinine Clearance 131.94 ml/min (50-250); Globulin 3.9 g/dL (2.2-4.2); Glucose 104 mg/dL (70-99); Potassium 3.9 mmol/L (3.3-5.1)
[2025-01-29 18:58] LABS: Hematocrit 34.2 % (40-54); Hemoglobin 11.2 g/dL (13.0-16.5); Immature Granulocytes Count 0.070 X10^3/uL (0.0-0.0); Mean Corp Hgb Conc 32.7 g/dL (32-36); Mean Corpuscular Volume 91.0 fL (80-94); Mean Platelet Vol. 8.6 fl (6.2-12.0); NRBC Flagged by Analyzer 0 % (0-5); Platelet Count 325 K/mm3 (150-450); RBC Distribution Width CV 13.1 % (11.6-14.6); RBC Distribution Width SD 43.6 fl (35.1-43.9); Red Blood Count 3.76 M/mm3 (4.6-6.2); White Blood Count 11.6 K/mm3 (4.4-11.0)
[2025-01-29 19:11] LABS: Prothrombin Time (Protime)PT. 14.6 SECONDS (11.7-14.9)
[2025-01-29 19:12] LABS: Partial Thromboplast Time 37.0 Seconds (24.1-36.2)
[2025-01-29 21:51] LABS: Mucous, Urine 0 SEEN /hpf (<or=2+); Squamous Epithelial Cells - UA 0 SEEN /hpf (0-5)
[2025-01-29 22:01] LABS: Color, Urine Yellow (Yellow); Glucose, Dipstick Normal (Normal); Ketone-Dipstick 50 mg/dl (Negative); Leukocyte Esterase-Dipstick 25 /ul (Negative); Nitrite-Dipstick Negative (Negative); Occult Blood-Urine 250 /ul (Negative); Protein-Dipstick 100 mg/dl (Negative); Specific Gravity, Urine 1.010 (1.002-1.030); Urine Bilirubin Dipstick Negative (Negative)
[2025-01-29 22:12] LABS: Red Blood Cells-Urine 50-100 SEEN /hpf (0-5)
[2025-01-30] VITALS (11 sets, daily range): BP systolic 119–139; BP diastolic 56–88; PULSE 80–105; RESP 12–20; TEMP 36.5–37.3; O2SAT 94–99; BMI 27.9
[2025-01-30 00:37] LABS: CRP 234.00 mg/L (0.0-3.0)
[2025-01-30 00:42] LABS: Internal QC Validated? YES +Cl - CLEAR BKGD
[2025-01-30 00:43] LABS: Record Kit Lot#, Mono 16251077
--- NOTE | 2025-01-30 07:40 | PCM.HP.STD ---
HPI - General General Date of Admission: 01/30/25 Date of Service: 01/30/25 Chief Complaint: Abdominal and testicular pain, myalgias HPI Narrative EVONNE JIMENEZ, is a 39 M who presented to [facility] ED on 01/29/2025 with abdominal and testicular pain and persistent myalgias. Patient has no significant past medical history. He was initially seen in the ED here on 01/[address] abdomen pelvis with IV contrast at that time showed minimal left hydroureter with mild mid and lower ureteric wall thickening enhancement with possible ureteritis, as well as nausea, dysphonic attenuation showing patchy hypodensities. He had a mild leukocytosis of 11,000 and mildly elevated AST and ALT but labs were otherwise normal. Notably his PCP had been concern for Lyme disease given his presentation so he had taken this for 4 days prior to that ED visit without improvement. He notably had significant diarrhea with doxycycline so he did not wish to continue this. He was discharged from the ED with short courses of Percocet and Zofran as needed. However, he continued to have symptoms so he returned to the ED on the evening of 01/29 for further evaluation. On arrival he was noted to have sinus tachycardia to the 120s and a low-grade fever of 100.2F, was otherwise normotensive and stable on room air at rest. Given unclear source of infection, more extensive workup was pursued. MRI T/L-spine was unremarkable. Chest x-ray was unremarkable. However, testicular ultrasound showed multiple ill-defined hypoechoic regions within both testicles with preserved intratesticular vascularity and heterogenous left epididymis; radiologist noted that findings are indeterminate but may be inflammatory or infectious (possible epididymitis) in setting of fever and bilateral testicular pain. Labs are notable for significantly elevated inflammatory markers of CRP 234 and ESR 60. LFTs are slightly more elevated than 2 days prior as well. UA unremarkable. Given these findings, case was discussed with hospitalist overnight who noted Urology is not available here this weekend and recommended transfer for both Urology and possibly Rheumatology services. Patient was accepted for transfer to [facility] Main basye but no bed was available, so hospitalist was again contacted for admission. I saw the patient at bedside in the ED. Patient was mildly fatigued appearing but otherwise sitting back fairly comfortably in bed, conversing normally, in no acute distress. He notes continued upper leg and upper arm muscular discomfort and mild bilateral testicular pain currently. Denies any fevers or chills. No other acute concerns at this time. Will be admitted for further management. [facility] Medical History no medical history Allergy/AdvReac Type Severity Reaction Status Date / Time amoxicillin Allergy Abd Verified 01/29/25 17:15 cramps/diarrhea clavulanic acid (From Allergy Abd Verified 01/29/25 17:15 Augmentin) cramps/diarrhea doxycycline AdvReac Abd Verified 01/29/25 17:15 cramps/diarrhea Surgical History (Updated 01/30/25 @ 09:03 by Jasmyn Bourgeois) History of vasectomy (~2021) Social History Smoking Status: Never smoker ROS Constitutional Constitutional: Reports fatigue; Denies chills or fever(s) Cardiovascular Cardiovascular: Denies chest pain, dyspnea on exertion, edema, lightheadedness, orthopnea or palpitations Respiratory/Chest Respiratory/Chest: Denies cough or shortness of breath at rest Gastrointestinal Gastrointestinal: Reports abdominal pain; Denies constipation, diarrhea, nausea or vomiting Genitourinary Genitourinary: Reports other Details: Bilateral testicular pain noted ; Denies dysuria Musculoskeletal Musculoskeletal: Reports myalgias; Denies arthralgias or back pain Neurologic Neurologic: Denies dizziness, focal weakness, headache(s), numbness or tingling Patient's Goals Of Care . What matters most to you about your health?: Being well, quality of life What would you like to achieve or improve as a result of your hospital stay?: To feel better Vital Signs Vital Signs Vital Signs: 01/29/25 17:14 01/29/25 17:25 01/29/25 17:57 Temperature 99.6 F H 99.7 F H Temperature Source Oral Oral Pulse Rate 123 H 119 H Respiratory Rate 22 H 13 Blood Pressure 140/84 H 137/89 H Blood Pressure Mean 102 105 Pulse Ox 99 99 Oxygen Delivery Method Room Air Room Air Room Air 01/29/25 18:14 01/29/25 20:21 01/29/25 21:00 Temperature 100.2 F H 100.2 F H Temperature Source Oral Oral Pulse Rate 78 108 H 109 H Respiratory Rate 16 22 H 14 Blood Pressure 132/78 H 120/71 116/83 H Blood Pressure Mean 96 87 94 Pulse Ox 98 96 97 Oxygen Delivery Method Room Air Room Air Room Air 01/29/25 21:49 01/29/25 22:10 01/29/25 23:10 Temperature 99.1 F 99.1 F 99 F Temperature Source Oral Oral Oral Pulse Rate 109 H 100 101 H Respiratory Rate 21 H 12 18 Blood Pressure 136/72 H 124/77 H 118/68 Blood Pressure Mean 93 92 84 Pulse Ox 100 100 100 Oxygen Delivery Method Room Air Room Air Room Air 01/30/25 00:05 01/30/25 01:00 01/30/25 02:00 Temperature 99.1 F Temperature Source Oral Pulse Rate 96 91 90 Respiratory Rate 12 Blood Pressure 124/88 H 119/76 138/76 H Blood Pressure Mean 100 90 96 Pulse Ox 98 99 Oxygen Delivery Method Room Air 01/30/25 03:00 01/30/25 04:00 01/30/25 05:00 Temperature Temperature Source Pulse Rate 98 90 102 H Respiratory Rate 18 18 20 H Blood Pressure 138/70 H 124/61 H 124/80 H Blood Pressure Mean 92 82 94 Pulse Ox 94 98 97 Oxygen Delivery Method Room Air Room Air Room Air 01/30/25 06:00 Temperature Temperature Source Pulse Rate 89 Respiratory Rate 18 Blood Pressure 125/56 H Blood Pressure Mean 79 Pulse Ox 96 Oxygen Delivery Method Room Air Weight Weight: 88.405 kg Body Mass Index (BMI) 27.9 Physical Exam Const alert, oriented x3, no apparent distress and average body habitus Constitutional Narrative: Younger middle-aged male, mildly fatigued appearing but otherwise sitting back fairly comfortably in bed, conversing normally, in no acute distress. General Appearance: cooperative and comfortable HEENT normocephalic, head/scalp atraumatic, hearing grossly normal bilaterally, nasal mucous membranes and turbinates normal and moist oral mucous membranes Eyes PERRL, EOMs intact bilaterally and conjunctivae normal Neck full ROM Chest inspection of chest normal Resp normal respiratory effort, normal air movement, no use of accessory muscles and clear to auscultation bilaterally Cardio regular rate, regular rhythm, no murmurs and peripheral pulses 2+ throughout GI normal to inspection, nondistended, normoactive bowel sounds, soft to palpation, non-tender and non-distended Back/Spine normal ROM Extremity normal to inspection, full ROM and no pedal edema Skin no rashes or lesions noted Psych mental status grossly normal Results Lab / Micro Data 01/29/25 17:30 01/29/25 17:30 Labs: Laboratory Results - last 24 hr 01/29/25 17:30: WBC 11.6 H, RBC 3.76 L, Hgb 11.2 L, Hct 34.2 L, MCV 91.0, MCH 29.8, MCHC 32.7, RDW Std Deviation 43.6, RDW Coeff of Iveth 13.1, Plt Count 325, MPV 8.6, Immature Gran % (Auto) 0.600, Neut % (Auto) 84.7 H, Lymph % (Auto) 5.6 L, [place] % (Auto) 5.4, Eos % (Auto) 3.4, Baso % (Auto) 0.3, Absolute Neuts (auto) 9.8 H, Absolute Lymphs (auto) 0.65 L, Nucleated RBC % 0, ESR 60 H, PT 14.6, INR 1.1, APTT 37.0 H, Sodium 134, Potassium 3.9, Chloride 95 L, Carbon Dioxide 28.1, Anion Gap 11, BUN 12, Creatinine 0.85, Estim Creat Clear Calc 131.94, Est GFR (MDRD) Non-Af 114, BUN/Creatinine Ratio 14.3, Glucose 104 H, Lactic Acid 1.1, Calcium 8.8, Total Bilirubin 0.58, AST 102 H, ALT 176 H, Alkaline Phosphatase 130 H, Total Creatine Kinase 79, C-React Prot Ext Range 234.00 H, Total Protein 7.1, Albumin 3.2 L, Globulin 3.9, Albumin/Globulin Ratio 0.8 L 01/29/25 21:47: Urine Color Yellow, Urine Clarity Clear, Urine pH 7.0, Ur Specific [place] 1.010, Urine Protein 100 H, Urine Glucose (UA) Normal, Urine Ketones 50 H, Urine Occult Blood 250 H, Urine Nitrite Negative, Urine Bilirubin Negative, Urine Urobilinogen Normal, Ur Leukocyte Esterase 25 H, Urine RBC 50-100 SEEN, Urine WBC 0-5 SEEN, Ur Squamous Epith Cells 0 SEEN, Urine Bacteria 1+, Urine Mucus 0 SEEN 01/30/25 00:08: Monoscreen Negative Rhythm Strip Rhythm Strip: Sinus Tach Rate: 120 Ectopy: None Imaging Radiology Impression Lumbar Spine MRI 01/29/25 17:51 IMPRESSION: Unremarkable exam. No significant spinal canal or neural foraminal narrowing. No signal abnormality or pathologic enhancement involving the spinal cord or cauda equina. Reading Location: [id number] Testicular Ultrasound 01/29/25 17:51 IMPRESSION: Multiple ill defined hypoechoic regions within both testicles with preserved intratesticular vascularity. Findings are indeterminate but may be inflammatory or infectious in the setting of fever and bilateral testicular pain. Heterogeneous left epididymis which may reflect epididymitis. Small right epididymal head cyst. Bilateral varicoceles. Reading Location: [employer] Thoracic Spine MRI 01/29/25 17:51 IMPRESSION: Unremarkable exam. No significant spinal canal or neural foraminal narrowing. No signal abnormality or pathologic enhancement involving the spinal cord or cauda equina. Reading Location: [id number] Chest X-Ray 01/29/25 18:05 IMPRESSION: No acute pulmonary disease. Reading Location: [employer] Assessment & Plan Assessment/Plan (1) Nonspecific abdominal pain: (2) Pain in both testicles: PLAN: Plan Patient is a 39-year-old male who presented to [facility] ED on 01/30/2025 with abdominal pain, testicular pain and persistent myalgias. 1. Abdominal/testicular pain and persistent myalgias ? Admit under inpatient status to [facility]. Presented with symptoms above for about 1 month. PCP concerned for Lyme disease, testing remains pending; patient took 4 days of doxycycline but had significant diarrhea and self discontinued. Initial ED visit on 01/27; CT abdomen pelvis with concern for possible ureteritis and possible areas of perfusion defects in the spleen, otherwise unremarkable. Testicular ultrasound on this admission with multiple ill-defined hypoechoic regions within both testicles with preserved intratesticular vascularity and heterogenous left epididymis, concerning for possible epididymitis versus inflammatory etiology. CRP 234, ESR 60. Low-grade fevers noted. Chest x-ray and MRI T/L-spine negative. UA fairly benign. Blood cultures and urine culture pending. Chlamydia and gonorrhea PCR negative. LDH normal, AFP pending. Will treat empirically with IV ceftriaxone for now. Also given 1 dose of IV Solu-Medrol 40 mg on admission. Follow-up a.m. CBC and inflammatory markers. Patient accepted for transfer to [facility] for urology and possibly rheumatology services, awaiting bed placement. 2. Mild normocytic anemia ? Hemoglobin 11.1 on admit, baseline unknown. Iron studies with low iron and iron binding capacity and significantly elevated ferritin of 1462 consistent with anemia of chronic disease. Follow-up a.m. CBC. 3. Elevated transaminases ? AST 102, ALT 176, alk phos 130, direct bilirubin normal. Slightly worse than LFTs on 01/27. No liver abnormalities on CT imaging on 01/27. Unclear etiology at this time. Acute hepatitis panel ordered. Follow-up a.m. LFTs. DVT prophylaxis: Low risk, ambulate CODE STATUS: Full code, verified Expected disposition: Transfer to [facility] Total clinical time spent by myself addressing the patient's medical issues, reviewing all the data, and collaborating with patient's care team: 78 minutes. Charges/Coding Visit Charges Inpatient E&M: 72303 Init Hosp L3
[2025-01-30] MEDS: Piperacil/Tazobactam 3.375 GM in 0.9% Normal Saline (50mL MB+) 50 ML IV (08:13)
--- OUTSIDE RECORDS SUMMARY | 2025-01-30 08:14 | XMS RPT_ITS | CCD ---
Author Organization [facility] Care Team Providers Care Nurse Tech Name Role Phone [facility], [facility] Admitting Unava ilable [facility], [facility] Attending Unava ilable [facility], [facility] Primary Care Unava ilable [facility], [facility] Admitting Unava ilable [facility], [facility] Attending Unava ilable [facility], [facility] Primary Care Unava ilable MIKE JONESRY T Consulting Unavailable PROVIDER, UNKNOWN Consulting Unavailable PROVIDER, UNKNOWN Consulting Unavailable PROVIDER, UNKNOWN Consulting Unavailable WAQAR SANTANA Admitting Unavailable WAQAR SANTANA Attending Unavailable WAQAR SANTANA Primary Care Unavailable TRINITY JONES Consulting Unavailable PROVIDER, UNKNOWN Consulting Unavailable PROVIDER, UNKNOWN Consulting Unavailable PROVIDER, UNKNOWN Consulting Unavailable [facility], [facility] Admitting Unava ilable [facility], [facility] Attending Unava ilable KAUSHALERENE, [facility] Primary Care Unava ilable JONESSHAHNAZTRINITY T Consulting Unavailable PROVIDER, UNKNOWN Consulting Unavailable PROVIDER, UNKNOWN Consulting Unavailable PROVIDER, UNKNOWN Consulting Unavailable Results Test Name Value Interpretation Reference Range Facil ity CULTURE, AEROBIC BACTERIAon 07-01-2021 CULTURE, AEROBIC BACTERIA SEE NOTE Normal [facility] Comment on above: Result Comment: CULTURE, AEROBIC BACTERIA Micro Number: [id number] Test Status: Final Specimen Source: Right side neck Specimen Quality: Adequate Result: No Growth Performed By: #### 4 [id number] #### [facility] [address], [address] [place] [address] Camp Counselor: Ron Mendoza MD TISSUE PATHOLOGYon 2 A DIAGNOSIS Normal [facility] Comment on above: Result Comment: Comp lete cross sections of vas deferens with no significant diagnostic abnormality. Performed By: #### 3 [id number] #### [facility] [place], [address] [place] [address] Camp Counselor: Nubia Randhawa GROSS DESCRIPTION Normal [facility] [...] Performed By: #### 3 542 #### [facility] [address], [address] [place] [address] Camp Counselor: Nubia Randhawa SOURCE Normal [facility] Comment on above: Result Comment: Righ t and left vas deferens, bilateral vasectomy: Performed By: #### 3 542 #### [address], [facility] A [place] [address] Camp Counselor: Nubia Solis CLINICAL INFORMATION Normal [facility] Comment on above: Result Comment: Vase ctomy (Z30.2) Performed By: #### 3 542 #### [address], [facility] [address] [place] [address] Camp Counselor: Nubia Solis Pathologist Cyto stain Nom (Cvx/Vag) [ID] Normal [facility] Comment on above: Result Comment: Micki George M.D. Board certified in Anatomic Pathology and Clinical Pathology (electronic signature) [phone] Performed By: #### 3 542 #### [address], [address] [place] [address] Camp Counselor: Nubia Solis Encounters Encounter Date Encounter Type Care Provider Facility Start: 04-26-2020 End: 04-26-2020 Patient encounter procedure [facility] Start: 02-24-2020 End: 02-24-2020 Patient encounter procedure WAQAR SANTANA [facility] Start: 11-06-2019 End: 11-06-2019 Patient encounter procedure [facility] Start: 08-10-2019 End: 08-10-2019 Patient encounter procedure [facility] Summary Purpose Family History No Family History Records FoundNo Family History Records Found Advance Directives No Advanced Directives Records FoundNo Advanced Directives Records Found Additional Source Comments (unrecognized sect ion and content) No Status Records FoundNo Status Records Found INFORMATION SOURCE (unrecogn ized section and content) DATE CREATED AUTHOR 05/16/2020 [facility] DATE CREATED AUTHOR AUTHOR'S ORGANIZ ATION 07/02/2021 [...] BE BASED ON THE PRIMARY CLINICAL RECORDS. [email or web address] [facility]. provides no warranty or guarantee of the accuracy or completeness of information in this document.
--- NOTE | 2025-01-30 08:38 | PCM.HOSP.N ---
Hospitalist Note Patient was evaluated in the Emergency Department at [facility] on 01/30/2025. At the time of evaluation, transfer to a tertiary hospital was felt to be in the patient's best interest due to need for Urology and Rheumatology services. Attempts were made by the Emergency Department and/or the Hospitalist team to get patient to the appropriate level of care. Although the pt is accepted for transfer to [facility], there are no staffed beds currently available. Given the need for ongoing medical care, patient will be admitted to [facility] on 01/30, and care will be provided here until [facility] has an available staffed bed. Pt and/or family are aware of the transfer, the reasoning behind the need for transfer, and that until a staffed bed becomes available, we will provide evidence-based care to the best of our abilities, with the limitations of care here being fully addressed.
[2025-01-30 08:51] LABS: Ferritin 1462 ng/mL (37-417); Iron 21 ug/dL (65-175); Iron Binding Capacity,Unsat 119 ug/dL (228-428); LDH 176 U/L (87-241); Vitamin B12 483 pg/mL (180-914)
[2025-01-30 08:55] LABS: Iron Binding Capacity,Total 140 ug/dL (250-450)
[2025-01-31 04:00] VITALS: BP 154/85; PULSE 78; RESP 18; TEMP 36.4; O2SAT 96
[2025-01-31 05:46] LABS: Hematocrit 33.5 % (40-54); Hemoglobin 10.6 g/dL (13.0-16.5); Mean Corp Hgb Conc 31.6 g/dL (32-36); Mean Corpuscular Volume 91.5 fL (80-94); Mean Platelet Vol. 8.7 fl (6.2-12.0); Platelet Count 358 K/mm3 (150-450); RBC Distribution Width CV 13.0 % (11.6-14.6); RBC Distribution Width SD 43.5 fl (35.1-43.9); Red Blood Count 3.66 M/mm3 (4.6-6.2); White Blood Count 9.2 K/mm3 (4.4-11.0)
[2025-01-31 05:48] LABS: AST(SGOT) 90 U/L (<=37); Alanine Aminotransfer ALT/SGPT 179 U/L (<=46); Albumin, Serum 2.9 g/dL (3.5-5.0); Alkaline Phosphatase 116 U/L (40-129); Anion Gap 10 (5-15); BUN 15 mg/dL (4-19); BUN/Creat Ratio 19.5 RATIO (10-20); CRP 171.00 mg/L (0.0-3.0); Calcium,Total 8.9 mg/dL (7.6-11.0); Carbon Dioxide 25.9 mmol/L (21.0-32.0); Chloride 101 mmol/L (98-108); Estimated Creatinine Clearance 143.77 ml/min (50-250); Globulin 3.8 g/dL (2.2-4.2); Glucose 102 mg/dL (70-99); Potassium 3.7 mmol/L (3.3-5.1)
--- NOTE | 2025-01-31 09:55 | PN.HOSP_ITS ---
Reason for Visit Chief Complaint: Abdominal and testicular pain, myalgias Subjective Subjective Saw patient at bedside this morning, present. Patient was sitting up in bed comfortably and appeared to have better energy level today compared to yesterday. Notes that he feels moderately improved today. States that even yesterday evening he was feeling better and has been walking around without issue. Denies any abdominal or testicular pain. No other new concerns today. Objective Data Objective Data Vital Signs: Vital Signs Temp Pulse Resp BP Pulse Ox O2 Del Method 97.6 F L 78 18 154/85 H 96 Room Air 01/31/25 04:00 01/31/25 04:00 01/31/25 04:00 01/31/25 04:00 01/31/25 04:00 01/31/25 07:36 Oxygen Delivery Method Room Air Weight: 88.4 kg Body Mass Index (BMI) 27.9 Intake & Output: Intake and Output for Last 24 Hours 01/29/25 01/30/25 01/31/25 23:59 23:59 23:59 Intake Total 1000 / 1000 50 / 550 500 / 500 Balance 1000 / 1000 50 / 550 500 / 500 Lab / Micro Data 01/31/25 04:19 01/31/25 04:19 Labs: Laboratory Results - last 24 hr 01/31/25 04:19: WBC 9.2, RBC 3.66 L, Hgb 10.6 L, Hct 33.5 L, MCV 91.5, MCH 29.0, MCHC 31.6 L, RDW Std Deviation 43.5, RDW Coeff of Iveth 13.0, Plt Count 358, MPV 8.7, ESR 68 H, Sodium 137, Potassium 3.7, Chloride 101, Carbon Dioxide 25.9, Anion Gap 10, BUN 15, Creatinine 0.78, Estim Creat Clear Calc 143.77, Est GFR (MDRD) Non-Af 117, BUN/Creatinine Ratio 19.5, Glucose 102 H, Calcium 8.9, Total Bilirubin 0.35, AST 90 H, ALT 179 H, Alkaline Phosphatase 116, C-React Prot Ext Range 171.00 H, Total Protein 6.8, Albumin 2.9 L, Globulin 3.8, Albumin/Globulin Ratio 0.8 L Micro: Microbiology 01/29/25 21:47 Urine, Clean Catch Urine Culture - Preliminary Culture exhibits no growth. 01/30/25 09:45 Urine, Clean Catch Chlamydia/Neisseria (PCR) - Final Rhythm Strip Rhythm Strip: Sinus Tach Rate: 120 Ectopy: None Patient's Goals Of Care - F/U Goals Reviewed Goals of care reviewed with patient: NA-No significant change in clinical Status /major procedure scheduled Physical Exam Const alert, oriented x3, no apparent distress and average body habitus Constitutional Narrative: Younger middle-aged male, energy improved today, sitting up comfortably in bed, conversing normally, in no acute distress. General Appearance: cooperative and comfortable HEENT normocephalic, head/scalp atraumatic, hearing grossly normal bilaterally, nasal mucous membranes and turbinates normal and moist oral mucous membranes Eyes PERRL, EOMs intact bilaterally and conjunctivae normal Neck full ROM Chest inspection of chest normal Resp normal respiratory effort, normal air movement, no use of accessory muscles and clear to auscultation bilaterally Cardio regular rate, regular rhythm, no murmurs and peripheral pulses 2+ throughout GI normal to inspection, nondistended, normoactive bowel sounds, soft to palpation, non-tender and non-distended Back/Spine normal ROM Extremity normal to inspection, full ROM and no pedal edema Skin no rashes or lesions noted Psych mental status grossly normal Assessment & Plan Assessment/Plan (1) Nonspecific abdominal pain: (2) Pain in both testicles: PLAN: Plan Patient is a 39-year-old male who presented to [facility] ED on 01/30/2025 with abdominal pain, testicular pain and persistent myalgias. 1. Abdominal/testicular pain and persistent myalgias ? Presented with symptoms above for about 1 month. PCP was concerned for Lyme disease, testing remains pending; patient took 4 days of doxycycline but had significant diarrhea and self discontinued. Initial ED visit was on 01/27; CT abdomen pelvis with concern for possible ureteritis and possible areas of perfusion defects in the spleen, otherwise unremarkable. Testicular ultrasound on this admission with multiple ill-defined hypoechoic regions within both testicles with preserved intratesticular vascularity and heterogenous left epididymis, concerning for possible epididymitis versus inflammatory etiology. CRP 234, ESR 60. Low-grade fevers noted. Chest x-ray and MRI T/L-spine negative. UA fairly benign. Blood cultures and urine culture pending. Chlamydia and gonorrhea PCR negative. LDH normal, AFP pending. Unclear etiology at this time but most consistent with infection versus inflammatory disease, possibly autoimmune. CRP downtrending, fevers resolved and patient subjectively feeling better on IV steroids and IV antibiotics. Will continue IV Solu-Medrol twice daily today and continue IV ceftriaxone. Patient has been accepted for transfer to [facility] for urology and possibly rheumatology services. However, on discussion with patient and today, if he continues to feel improved tomorrow and labs are improving, plan will be for discharge home tomorrow and outpatient follow-up with urology and rheumatology. 2. Mild normocytic anemia ? Hemoglobin 11.1 on admit, baseline unknown. Iron studies with low iron and iron binding capacity and significantly elevated ferritin of 1462 consistent with anemia of chronic disease. Hemoglobin 10.6 on hospital day 2. No need to monitor further labs while inpatient, but will need close outpatient follow-up. 3. Elevated transaminases ? AST 102, ALT 176, alk phos 130, direct bilirubin normal. Slightly worse than LFTs on 01/27. No liver abnormalities on CT imaging on 01/27. Unclear etiology at this time. Acute hepatitis panel pending. Slightly improved on hospital day 2. No need to monitor further labs while inpatient, will need close outpatient follow-up. DVT prophylaxis: Low risk, ambulate CODE STATUS: Full code, verified Expected disposition: Transfer to [facility] Total clinical time spent by myself addressing the patient's medical issues, reviewing all the data, and collaborating with patient's care team: 40 minutes. Charges/Coding Visit Charges Inpatient E&M: 70353 Subs Hosp L2
[2025-01-31 10:00] VITALS: BP 147/90; PULSE 98; RESP 16; TEMP 36.5; O2SAT 97
[2025-01-31] MEDS: Ceftriaxone 2 GM in 0.9% Normal Saline (50mL MB+) 50 ML IV (10:36)
[2025-01-31] MEDS: Lactobacillis Acidophilus 1 CAP PO ×2 (12:48→17:32)
[2025-01-31] MEDS: 0.9% Saline Lock 10 ML Syringe IV (17:33)
[2025-01-31 17:40] VITALS: BP 140/87; PULSE 82; RESP 16; TEMP 36.6; O2SAT 99
--- NOTE | 2025-01-31 19:38 | NURSING ---
[facility] called with a bed assignment. Patient and at bedside said they do not want to transfer. They plan to follow up with urology as out patient. Text sent to Dr. Love
[2025-01-31 22:16] VITALS: BP 154/89; PULSE 87; RESP 16; TEMP 36.7; O2SAT 96
[2025-02-01 04:00] VITALS: BP 135/87; PULSE 61; RESP 16; TEMP 36.7; O2SAT 99
[2025-02-01 07:51] LABS: Hematocrit 34.3 % (40-54); Hemoglobin 11.0 g/dL (13.0-16.5); Mean Corp Hgb Conc 32.1 g/dL (32-36); Mean Corpuscular Volume 91.5 fL (80-94); Mean Platelet Vol. 8.6 fl (6.2-12.0); Platelet Count 416 K/mm3 (150-450); RBC Distribution Width CV 13.0 % (11.6-14.6); RBC Distribution Width SD 42.7 fl (35.1-43.9); Red Blood Count 3.75 M/mm3 (4.6-6.2); White Blood Count 10.8 K/mm3 (4.4-11.0)
[2025-02-01 08:21] VITALS: BP 131/82; PULSE 81; RESP 16; TEMP 36.4; O2SAT 98
[2025-02-01 08:21] LABS: AST(SGOT) 132 U/L (<=37); Alanine Aminotransfer ALT/SGPT 305 U/L (<=46); Albumin, Serum 3.0 g/dL (3.5-5.0); Alkaline Phosphatase 104 U/L (40-129); Anion Gap 11 (5-15); BUN 19 mg/dL (4-19); BUN/Creat Ratio 23.3 RATIO (10-20); CRP 78.50 mg/L (0.0-3.0); Calcium,Total 8.9 mg/dL (7.6-11.0); Carbon Dioxide 25.6 mmol/L (21.0-32.0); Chloride 102 mmol/L (98-108); Estimated Creatinine Clearance 135.11 ml/min (50-250); Globulin 3.6 g/dL (2.2-4.2); Glucose 96 mg/dL (70-99); Potassium 4.2 mmol/L (3.3-5.1)
[2025-02-01] MEDS: Lactobacillis Acidophilus 1 CAP PO (08:22)
[2025-02-01] MEDS: 0.9% Saline Lock 10 ML Syringe IV (08:22)
--- NOTE | 2025-02-01 09:33 | PCM.DC.SUM ---
Providers Date of Admission: 01/30/25 Date of Discharge: 02/01/25 Primary Care Physician: Michelle Centeno MD Reason For Visit: ABDOMINAL PAIN/ CONCERN FOR EPIDIDYMITIS Diagnosis Discharge Diagnosis (1) Nonspecific abdominal pain: Status: Acute Code(s): R10.9 - Unspecified abdominal pain (2) Pain in both testicles: Status: Acute Code(s): N50.811 - Right testicular pain; N50.812 - Left testicular pain Medications at Discharge Home Medications cefdinir 300 mg capsule 300 mg PO BID 5 days #10 caps 02/01/25 prednisone 10 mg tablet See Taper PO DAILY 12 days #30 tabs 02/01/25 Hospital Course Operations None Procedures EKG and - (Chest x-ray, testicular ultrasound, MRI T and L-spine) Summary of Care Provided Minutes Spent on Discharge: 39 Hospital Course: Patient is a 39-year-old male who presented to [facility] ED on 01/30/2025 with abdominal pain, testicular pain and persistent myalgias. Hospital course as noted below. Patient discharged home in stable condition on 02/01. 1. Abdominal/testicular pain and persistent myalgias ? Presented with symptoms above for about 1 month. PCP was concerned for Lyme disease, testing remains pending; patient took 4 days of doxycycline but had significant diarrhea and self discontinued. Initial ED visit was on 01/27; CT abdomen pelvis with concern for possible ureteritis and possible areas of perfusion defects in the spleen, otherwise unremarkable. Testicular ultrasound on this admission with multiple ill-defined hypoechoic regions within both testicles with preserved intratesticular vascularity and heterogenous left epididymis, concerning for possible epididymitis versus inflammatory etiology. CRP 234, ESR 60. Low-grade fevers noted. Chest x-ray and MRI T/L-spine negative. UA fairly benign. Blood cultures and urine culture with no growth. Chlamydia and gonorrhea PCR negative. LDH normal, AFP pending on discharge. Unclear etiology at this time but most consistent with infection versus inflammatory disease, possibly autoimmune. CRP significantly downtrending, fevers resolved and patient subjectively feeling better on IV steroids and IV antibiotics. Initial plan was for transfer to [facility] for urology and possibly rheumatology services; however, given patient's clinical improvement, he wished to be discharged home with plan to follow-up closely outpatient with urology and rheumatology. Discharged on prednisone taper of 40 mg x 3 days, then 30 mg x 3 days, then 20 mg x 3 days, then 10 mg x 3 days as well as p.o. cefdinir to complete 7-day course of antibiotics total. Discharged in stable condition on 02/01. 2. Mild normocytic anemia ? Hemoglobin 11.1 on admit, baseline unknown. Iron studies with low iron and iron binding capacity and significantly elevated ferritin of 1462 consistent with anemia of chronic disease. Hemoglobin 11.0 on day of discharge. Will need close outpatient follow-up as above. 3. Elevated transaminases ? AST 102, ALT 176, alk phos 130, direct bilirubin normal. Slightly worse than LFTs on 01/27. No liver abnormalities on CT imaging on 01/27. Unclear etiology at this time. Acute hepatitis panel pending on discharge. Remained stable during hospitalization. Will need close outpatient follow-up on discharge. Total clinical time spent by myself addressing the patient's medical issues, reviewing all the data, and collaborating with patient's care team: 39 minutes. Physical Exam Const alert, oriented x3, no apparent distress and average body habitus Constitutional Narrative: Younger middle-aged male, energy much improved from admission, sitting up comfortably in bed, conversing normally, in no acute distress. General Appearance: cooperative and comfortable HEENT normocephalic, head/scalp atraumatic, hearing grossly normal bilaterally, nasal mucous membranes and turbinates normal and moist oral mucous membranes Eyes PERRL, EOMs intact bilaterally and conjunctivae normal Neck full ROM Chest inspection of chest normal Resp normal respiratory effort, normal air movement, no use of accessory muscles and clear to auscultation bilaterally Cardio regular rate, regular rhythm, no murmurs and peripheral pulses 2+ throughout GI normal to inspection, nondistended, normoactive bowel sounds, soft to palpation, non-tender and non-distended Back/Spine normal ROM Extremity normal to inspection, full ROM and no pedal edema Skin no rashes or lesions noted Psych mental status grossly normal Weight / BMI Weight Weight: 88.4 kg Body Mass Index (BMI) 27.9 ABG / Lab / Microbiology Data 02/01/25 06:55 02/01/25 06:55 Laboratory: Laboratory Results - last 24 hr 02/01/25 06:55: WBC 10.8, RBC 3.75 L, Hgb 11.0 L, Hct 34.3 L, MCV 91.5, MCH 29.3, MCHC 32.1, RDW Std Deviation 42.7, RDW Coeff of Iveth 13.0, Plt Count 416, MPV 8.6, ESR 66 H, Sodium 139, Potassium 4.2, Chloride 102, Carbon Dioxide 25.6, Anion Gap 11, BUN 19, Creatinine 0.83, Estim Creat Clear Calc 135.11, Est GFR (MDRD) Non-Af 115, BUN/Creatinine Ratio 23.3 H, Glucose 96, Calcium 8.9, Total Bilirubin 0.26, AST 132 H, ALT 305 H, Alkaline Phosphatase 104, C-React Prot Ext Range 78.50 H, Total Protein 6.6, Albumin 3.0 L, Globulin 3.6, Albumin/Globulin Ratio 0.9 Microbiology: Microbiology 01/29/25 21:47 Urine, Clean Catch Urine Culture - Final Culture exhibits no growth. 01/29/25 17:47 Blood Culture (Wb) - Anticubital Right Blood Culture - Preliminary No growth in 48 hours. 01/29/25 17:30 Blood Culture (Wb) - Anticubital Right Blood Culture - Preliminary No growth in 48 hours. 01/30/25 09:45 Urine, Clean Catch Chlamydia/Neisseria (PCR) - Final D/C Instructions DC O2, CPAP, BIPAP Needs Home O2 Discharge instructions: No Patient's Goals Of Care - F/U Goals Reviewed Goals of care reviewed with patient: NA-No significant change in clinical Status /major procedure scheduled Meaningful Use Info Meaningful Use Meaningful Use Diagnoses (Choose all that apply): None applicable Discharge Plan Admission Admit Date/Time: 01/30/25 07:40 Primary Reason for Your Visit: abdominal/testicular pain and muscle aches Attending Provider: Viktor Love Primary Care Provider: Michelle Centeno Instructions Additional Instructions / Restrictions: - Take prednisone taper as prescribed below. - Take cefdinir twice daily for 5 more days to complete 7 day course of antibiotics total. - Follow up with Urology and potentially Rheumatology outpatient soon as we discussed. Discharge Orders/Prescriptions Prescriptions: New prednisone 10 mg tablet See Taper PO DAILY 12 Days Qty: 30 0RF Taper: Prednisone Taper 40 mg WITH BREAKFAST for 3 Days and 0 Hour 30 mg WITH BREAKFAST for 3 Days and 0 Hour 20 mg WITH BREAKFAST for 3 Days and 0 Hour 10 mg WITH BREAKFAST for 3 Days and 0 Hour cefdinir 300 mg capsule 300 mg PO BID 5 Days Qty: 10 0RF Referrals / Follow Up: Michelle Centeno MD [Primary Care Provider, Family Practice] Haja Santiago MD [Non-Staff, Medical] Disposition Disposition (needs filled in before D/C Order can be placed): Home, Self Care Charges/Coding Visit Charges Inpatient E&M: 06443 Disch Hosp >30min
--- NOTE | 2025-02-01 10:33 | CASEMGMT ---
Dx:abd pain/concern for epididymitis LACE:2 6-Clicks:24 Medical record reviewed and patient evaluated for identification of discharge planning needs. Based on this review, at this time criteria are not present to indicate a need for discharge planning. Will remain available to assist with discharge planning needs as identified or requested.Pt had planned on being trf to another facility. Pt to dc and follow up as an outpt.
[2025-02-01 12:08] VITALS: BP 135/90; PULSE 79; RESP 16; TEMP 37.1; O2SAT 99
--- NOTE | 2025-02-01 13:58 | PHA.DC_ITS ---
Pharmacy [facility] Counseling Pharmacy Service has performed discharge medication reconciliation and counseling for this patient. 1. CEFDINIR 300MG PO BID X 5 DAYS 2. PREDNISONE 40MG PO DAILY X 3 DAYS, THEN 30MG X 3 DAYS, THEN 20MG X 3 DAYS, THEN 10MG X 3 DAYS The patient's discharge medication list was reviewed for discrepancies and discrepancies were resolved. The patient was counseled on the following discharge medications and changes in medications for homegoing were reviewed. The Reason for Use, instructions for use, and potential side effects were reviewed for all new medications. The patient's questions regarding all of their medications were answered. The patient was able to verbally demonstrate an understanding of their discharge medications. Medications at Discharge Home Medications cefdinir 300 mg capsule 300 mg PO BID 5 days #10 caps 02/01/25 prednisone 10 mg tablet See Taper PO DAILY 12 days #30 tabs 02/01/25
[2025-02-02 03:07] LABS: HEPATITIS B SURFACE AG Negative (Negative); Hep C Antibodies Non Reactive (Non Reactive)
[2025-02-02 15:08] LABS: Folate, Hemolysate Test 398.0 ng/mL (Not Estab.); Folate, RBC (Hct) Test 33.8 % (37.5-51.0); Folates, RBC Test 1178 ng/mL (>498)
[2025-02-03 19:08] LABS: Lyme Scn Total Ab w/Rflx Negative (Negative); Mumps Antibody, IgM 4.14 AU (0.00-0.79); Mumps Antibody,IgG 41.1 AU/mL (Immune >10.9)
== END 2025-02-01 13:15 | disposition home or self-care (01) | DRG 730 ==
LOC: ED 01-30 01:59 → MS3 01-30 08:12
PROVIDERS: Admitting Provider Hospitalist; Emergency Provider Emergency Medicine; PCP Student in an Organized Health Care Education/Training Program; Visit Provider Hospitalist
DX: N50.811 Right testicular pain (principal); D63.8 Anemia in other chronic diseases classified elsewhere; M79.10 Myalgia, unspecified site; N50.812 Left testicular pain; Z98.52 Vasectomy status; R74.01 Elevation of levels of liver transaminase levels; R10.9 Unspecified abdominal pain
CPT/HCPCS: 36415; 71045; 72157; 72158; 76870; 80053; 80074; 81001; 82105; 82550; 82607; 82728; 82747; 83540; 83550; 83605; 83615; 85014; 85025; 85027; 85610; 85652; 85730; 86140; 86308; 86618; 86735; 87040; 87086; 87491; 87591; 93005; 93976; 94668; 97802; 99285; A9575; A4216; J0696